=== PATIENT | male | born 1985 | race African-American/Black ===

== ENCOUNTER 2023-03-03 12:26 | Emergency (ER) | payer MEDICAID ==
[~2023-03-03] VITALS: Ht 190.5 cm; Wt 97.7 kg
[2023-03-03] MEDS ORDERED: KETOROLAC 30MG/ML VIAL IM ONE (14:30)
[2023-03-03 14:53] LABS: CLARITY URINE CLEAR (CLEAR); COLOR URINE YELLOW (YELLOW); KETONES URINE NEGATIVE (NEGATIVE); LEUKOCYTE ESTERASE URINE NEGATIVE (NEGATIVE); NITRITE URINE NEGATIVE (NEGATIVE); OCCULT BLOOD URINE TRACE (NEGATIVE); PH URINE 5.5 (4.5-8.0); PROTEIN URINE NEGATIVE (NEGATIVE); SPECIFIC GRAVITY URINE 1.026 (1.005-1.030); UROBILINOGEN URINE 0.2 E.U./dL (0.2-1.0)
[2023-03-03] MEDS ORDERED: KETOROLAC 30MG/ML VIAL IM NR (15:00)
[2023-03-03 15:07] VITALS: BP 123/79
== END 2023-03-03 15:27 | disposition home or self-care (01) ==
LOC: ER 13:55
DX: M54.50 Low back pain, unspecified (principal)
CPT/HCPCS: 81003; 99283; J1885